=== PATIENT | male | born 1955 | race American Indian/Alaskan Native ===

== ENCOUNTER 2021-10-25 12:38 | Outpatient (CLI) | payer MEDICARE ==
--- NOTE | 2021-10-25 15:03 | XRay Report ---
LUMBAR SPINE 3 VIEWS 1311 INDICATION: Lumbar radicular pain COMPARISON: None available. FINDINGS: No fracture seen. Prominent lower lumbar degenerative changes. Partial sacralization of L5. Prominent disc space narrowing with grade 2 anterolisthesis of 10 mm seen at L4-5. Signer Name: Jef Urena MD Signed: 10/25/2021 2:58 PM Workstation Name: [id number]
== END 2021-10-25 12:39 | disposition home or self-care (01) ==
LOC: XRAY 12:38
PROVIDERS: ATTEND Internal Medicine
DX: M47.26 Other spondylosis with radiculopathy, lumbar region (principal); M48.061 Spinal stenosis, lumbar region without neurogenic claudication
CPT/HCPCS: 72100